=== PATIENT | male | born 1980 | race Caucasian/White ===

== ENCOUNTER → 2019-10-26 | Outpatient (CLI) | payer BC | LOC: RAD 10:38 | DX: S83.241A Other tear of medial meniscus, current injury, right knee, initial encounter (principal); M23.341 Other meniscus derangements, anterior horn of lateral meniscus, right knee ==

== ENCOUNTER 2023-10-16 10:21 | Outpatient (RCR) | payer OTHER ==
[~2023-10-16 10:21] MED LIST: ZESTRIL10 M1 PO; ZOFRAN4 M2 PO
== END 2023-11-15 | disposition home or self-care (01) ==
LOC: PT
DX: M46.1 Sacroiliitis, not elsewhere classified (principal)

== ENCOUNTER 2023-12-24 10:47 | Outpatient (RCR) | payer OTHER | END 2024-01-15 | disposition home or self-care (01) | LOC: PT | DX: M47.14 Other spondylosis with myelopathy, thoracic region (principal); Z98.890 Other specified postprocedural states ==